=== PATIENT | female | born 1955 | race Caucasian/White ===

== ENCOUNTER 2021-12-30 11:52 | Emergency (ER) | payer MEDICARE ==
[~2021-12-30] VITALS: Ht 167.6 cm; Wt 86.5 kg
[2021-12-30 11:55] VITALS: BP 162/65
[2021-12-30] MEDS ORDERED: ATOR1TAB19 PO (12:02)
[2021-12-30] MEDS ORDERED: EFFE150C2 PO (12:04)
[2021-12-30 13:50] LABS: BASO # 0.1 10^3/uL (0.0-0.2); BASO % 0.3 % (0.0-1.0); EOS % 0.2 % (0.0-3.0); HEMATOCRIT 44.7 % (36.0-47.0); HEMOGLOBIN 15.2 g/dl (12.0-15.5); LYMPH # 1.3 10^3/uL (1.5-5.0); LYMPH % 7.9 % (24.0-44.0); MEAN CORPUSCULAR HEMOGLOBIN 32.3 pg (27.0-33.0); MEAN CORPUSCULAR VOLUME 95.1 fl (80.0-96.0); MONO # 0.9 10^3/uL (0.0-0.8); MONO % 5.9 % (2.0-8.0); NEUTROPHILS # 13.5 10^3/uL (1.5-8.5); NEUTROPHILS % 85.1 % (36.0-66.0); PLATELET COUNT, AUTOMATED 288 10^3/uL (150-450); WHITE BLOOD COUNT 15.9 10^3/uL (4.0-10.0)
[2021-12-30 14:20] LABS: ALBUMIN 3.8 GM/DL (3.2-5.2); BILIRUBIN,DIRECT 0.2 MG/DL (0.0-0.2); BILIRUBIN,TOTAL 0.7 MG/DL (0.2-1.0); TOTAL PROTEIN 7.5 GM/DL (6.4-8.2)
[2021-12-30] MEDS ORDERED: NS 1,000 ML IV ONE (14:20)
[2021-12-30] MEDS ORDERED: KETOROLAC 30 MG/ML 1ML VIAL IV ONE (14:20)
[2021-12-30] MEDS ORDERED: ISOVUE-370 76% 100ML VIAL As Ordered ONE (15:17)
[2021-12-30] MEDS ORDERED: FLOM0.4C39 PO (16:34)
[2021-12-30] MEDS ORDERED: KETO10TAB PO (16:34)
[2021-12-30] MEDS ORDERED: MACR100C43 PO (16:38)
== END 2021-12-30 16:50 | disposition home or self-care (01) ==
LOC: M ED 11:52
DX: K80.20 Calculus of gallbladder without cholecystitis without obstruction (principal); N20.2 Calculus of kidney with calculus of ureter; K57.90 Diverticulosis of intestine, part unspecified, without perforation or abscess without bleeding; F41.9 Anxiety disorder, unspecified; Z87.448 Personal history of other diseases of urinary system; Z88.0 Allergy status to penicillin; Z88.2 Allergy status to sulfonamides
CPT/HCPCS: 74177; 80047; 80076; 81001; 83690; 85025; 87086; 96361; 96374; 99283; J1885; Q9967

== ENCOUNTER → 2023-04-09 | Outpatient (CLI) | payer MEDICARE ==
[~2023-04-09] MED LIST: ATOR1TAB19 PO; EFFE150C2 PO; FLOM0.4C39 PO; KETO10TAB PO; MACR100C43 PO
== END ==
LOC: M RAD 12:51
DX: M25.562 Pain in left knee (principal)

== ENCOUNTER 2023-04-15 08:14 | Emergency (ER) | payer MEDICARE ==
[~2023-04-15] VITALS: Ht 167.6 cm; Wt 81.4 kg
[2023-04-15] MEDS ORDERED: KETOROLAC 30 MG/ML 1ML VIAL IV ONE (09:10)
[2023-04-15] MEDS ORDERED: methylPREDNISolone 125MG 2ML VIAL IV ONE (09:10)
[2023-04-15] MEDS ORDERED: VENL75CA47 PO (09:42)
[2023-04-15] MEDS ORDERED: OMEP-173 PO (09:42)
[2023-04-15 10:07] LABS: BASO % 0.6 % (0.0-1.0); EOS # 0.1 10^3/uL (0.0-0.5); EOS % 1.1 % (0.0-3.0); HEMATOCRIT 42.5 % (36.0-47.0); HEMOGLOBIN 14.7 g/dl (12.0-15.5); LYMPH # 2.3 10^3/uL (1.5-5.0); LYMPH % 31.5 % (24.0-44.0); MEAN CORPUSCULAR HEMOGLOBIN 33.1 pg (27.0-33.0); MEAN CORPUSCULAR HGB CONC 34.6 g/dl (32.0-36.5); MEAN CORPUSCULAR VOLUME 95.7 fl (80.0-96.0); MONO # 0.6 10^3/uL (0.0-0.8); MONO % 7.9 % (2.0-8.0); NEUTROPHILS # 4.2 10^3/uL (1.5-8.5); NEUTROPHILS % 58.5 % (36.0-66.0); PLATELET COUNT, AUTOMATED 262 10^3/uL (150-450); RED BLOOD COUNT 4.44 10^6/uL (4.00-5.40); WHITE BLOOD COUNT 7.2 10^3/uL (4.0-10.0)
[2023-04-15 10:24] LABS: ERYTHROCYTE SEDIMENTATION RATE 18 mm/hr (0-30)
[2023-04-15 10:29] LABS: URIC ACID 8.3 MG/DL (3.1-7.8)
[2023-04-15 10:30] LABS: BLOOD UREA NITROGEN 8 MG/DL (9-23); C REACTIVE PROTEIN QUANTITATIV < 0.40 MG/DL (<1.0); CALCIUM LEVEL 8.8 MG/DL (8.3-10.6); CARBON DIOXIDE LEVEL 28 MMOL/L (20-31); CHLORIDE LEVEL 109 MMOL/L (98-107); CREATININE FOR GFR 0.75 MG/DL (0.55-1.30); GLOMERULAR FILTRATION RATE > 60.0 (>45); GLUCOSE, FASTING 82 MG/DL (74-106); POTASSIUM SERUM 4.3 MMOL/L (3.5-5.1); SODIUM LEVEL 144 MMOL/L (136-145)
[2023-04-15] MEDS ORDERED: PERCOCET 5MG/325MG TAB PO ONE (12:10)
[2023-04-15] MEDS ORDERED: HYDR-3713 PO (13:38)
[2023-04-15] MEDS ORDERED: MEDR4PAK PO (13:38)
[2023-04-15] MEDS ORDERED: CAPS0.022 TOP (13:38)
[2023-04-15 13:50] VITALS: BP 120/57; TEMP 98.1; O2SAT 85
== END 2023-04-15 14:00 | disposition home or self-care (01) ==
LOC: M ED 08:14 → EDBD 08:14 → M ED 14:00
DX: M25.462 Effusion, left knee (principal); M25.562 Pain in left knee; K21.9 Gastro-esophageal reflux disease without esophagitis; M19.90 Unspecified osteoarthritis, unspecified site; F17.200 Nicotine dependence, unspecified, uncomplicated; Z79.1 Long term (current) use of non-steroidal anti-inflammatories (NSAID); Z79.02 Long term (current) use of antithrombotics/antiplatelets; Z79.899 Other long term (current) drug therapy
CPT/HCPCS: 73552; 73564; 80048; 84550; 85025; 85652; 86140; 93971; 96374; 99284; J1885; J2930

== ENCOUNTER → 2024-04-26 | Outpatient (CLI) | payer MEDICARE, MEDICAID ==
[~2024-04-26] MED LIST changes: +CAPS0.022 TOP; -EFFE150C2 PO; +EFFE150C3 PO; +HYDR-3713 PO; +MEDR4PAK PO; +OMEP-173 PO; +VENL75CA47 PO
== END ==
LOC: M RAD 14:44
DX: Z12.2 Encounter for screening for malignant neoplasm of respiratory organs (principal); F17.210 Nicotine dependence, cigarettes, uncomplicated

== ENCOUNTER → 2024-10-20 | Outpatient (CLI) | payer MEDICARE, MEDICAID | LOC: M RAD 10:07 | PROVIDERS: ATTEND Internal Medicine | DX: R91.8 Other nonspecific abnormal finding of lung field (principal); K76.0 Fatty (change of) liver, not elsewhere classified; K80.20 Calculus of gallbladder without cholecystitis without obstruction ==

== ENCOUNTER 2025-05-20 13:43 | Emergency (ER) | payer MEDICARE, MEDICAID ==
[~2025-05-20] VITALS: Ht 167.6 cm; Wt 84.3 kg
[~2025-05-20 13:43] MED LIST changes: -FLOM0.4C39 PO; +TAMS-18 PO
[2025-05-20 13:47] VITALS: BP 131/80; TEMP 96.2; O2SAT 95
[2025-05-20 14:24] LABS: BASO # 0.0 10^3/uL (0.0-0.2); BASO % 0.4 % (0.0-1.0); EOS # 0.2 10^3/uL (0.0-0.5); EOS % 2.0 % (0.0-3.0); LYMPH # 2.2 10^3/uL (1.5-5.0); LYMPH % 25.9 % (24.0-44.0); MONO # 0.7 10^3/uL (0.0-0.8); MONO % 7.9 % (2.0-8.0); NEUTROPHILS # 5.4 10^3/uL (1.5-8.5); NEUTROPHILS % 63.6 % (36.0-66.0); PLATELET COUNT, AUTOMATED 297 10^3/uL (150-450)
[2025-05-20 14:51] LABS: CK-MB VALUE MASS 2.3 NG/ML (<3.6)
[2025-05-20 14:53] LABS: CALCIUM LEVEL 8.6 MG/DL (8.3-10.6); CARBON DIOXIDE LEVEL 26.0 MMOL/L (20-31); CHLORIDE LEVEL 109.0 MMOL/L (98-107); CREATININE FOR GFR 0.75 MG/DL (0.55-1.30); GLOMERULAR FILTRATION RATE 85.1 (>39); POTASSIUM SERUM 3.9 MMOL/L (3.5-5.1); SODIUM LEVEL 141.0 MMOL/L (136-145)
[2025-05-20 15:01] LABS: INR 0.93
[2025-05-20 15:18] LABS: CPK CREATINE PHOSPHOKINASE 163.0 U/L (34-145); MB/CK RELATIVE INDEX 1.41 (< OR =4)
[2025-05-20] MEDS ORDERED: ISOVUE-370 76% 100 ML VIAL As Ordered ONE (15:49)
[2025-05-20 15:56] LABS: CK-MB VALUE MASS 2.2 NG/ML (<3.6)
[2025-05-20 15:57] LABS: CPK CREATINE PHOSPHOKINASE 150.0 U/L (34-145); MB/CK RELATIVE INDEX 1.46 (< OR =4)
== END 2025-05-20 18:23 | disposition home or self-care (01) ==
LOC: M ED 13:43
DX: R07.9 Chest pain, unspecified (principal); E78.5 Hyperlipidemia, unspecified; K21.9 Gastro-esophageal reflux disease without esophagitis; F17.200 Nicotine dependence, unspecified, uncomplicated; Z88.0 Allergy status to penicillin; Z88.2 Allergy status to sulfonamides; Z88.1 Allergy status to other antibiotic agents; Z79.02 Long term (current) use of antithrombotics/antiplatelets; Z79.1 Long term (current) use of non-steroidal anti-inflammatories (NSAID); Z79.899 Other long term (current) drug therapy
CPT/HCPCS: 36415; 70491; 71045; 71275; 80048; 82550; 82553; 84484; 85025; 85610; 85730; 87486; 87581; 87633; 87798; 93005; 93041; 94760; 99284; Q9967